=== PATIENT | female | born 2000 | race Caucasian/White ===

== ENCOUNTER 2022-01-12 14:05 | Emergency (ER) | payer BC, SELFPAY ==
[2022-01-12 15:02] VITALS: BP 131/84; PULSE 58; RESP 18; TEMP 36.3; O2SAT 98; BMI 25.3
[2022-01-12 15:43] LABS: Carboxyhemoglobin* 1.9 % (0.0-5.0)
[2022-01-12 15:44] LABS: Basophils Absolute Auto 0.02 K/uL (0.00-0.30); Basophils Percent Auto 0.3 % (0.0-3.0); Eosinophils Absolute Auto 0.03 K/uL (0.00-0.50); Eosinophils Percent Auto 0.4 % (0.0-7.0); Hematocrit 40.5 % (33.0-51.0); Hemoglobin* 13.5 gm/dL (12.0-16.0); Lymphocytes Absolute Auto 2.98 K/uL (0.90-2.90); Lymphocytes Percent Auto 37.3 % (20-44); Mean Corpuscular HGB Conc 33 gm/dL (32-36); Mean Corpuscular Hemoglobin 29 pg (26-34); Mean Corpuscular Volume 88 fL (80-100); Monocytes Percent Auto 6.4 % (0.0-11.0); Neutrophils Absolute Auto 4.44 K/uL (1.7-7.0); Neutrophils Percent Auto 55.6 % (42.0-72.0); Platelet Count* 263 K/uL (140-440); RDW Coefficient of Variation % 11.7 % (11.5-15.5); Slide Review Reflex No; White Blood Count* 7.98 K/uL (4.50-11.00)
--- NOTE | 2022-01-12 16:59 | ED.GENADULT ---
HPI - General Adult General Time Seen by Provider: 16:59 Date Seen: 01/12/22 Chief complaint: Burn/Smoke Inhalation Stated complaint: Possible CO2 Poisoning Time Seen by Provider: 01/12/22 16:55 Source: patient and RN notes reviewed Mode of arrival: ambulatory Limitations: no limitations History of Present Illness HPI narrative: Patient is coming in for evaluation of probable carbon monoxide exposure. She moved into a new apartment and was the only 1 residing there. She attempted to turn the stove on and did not realize that she had turned on. That was 2 days ago. Yesterday she noted was warm. She had thought when she could not get it turned on that it never turned on. It had in fact turned on and then she could not get this switch to go off. Sounds like the switch was just circling. She was hearing some BP in last night but it was soft in intermittent. She did not realize that this was a carbon monoxide detector going off. Overnight she woke up not feeling well, nausea, diarrhea, dizzy and lightheaded. She has been out of the house all day. In the morning someone help her open up all the windows had stands blowing in. Later when the actually checked the carbon monoxide levels they were normal but again the house had already been cleared. The stove has been taking care of. She overall is feeling better and has been out of the house all day. Related Data Home Medications Medication Instructions Recorded Confirmed control pill 01/12/22 Allergies Allergy/AdvReac Type Severity Reaction Status Date / Time No Known Drug Allergies Allergy Verified 01/12/22 15:07 Review of Systems Status of ROS: Reports: 6 or more systems reviewed and unremarkable except as noted in History and below Exam Const: Vital Signs, click to edit/add: Vital Signs - 24 hr 01/12/22 15:02 Temperature 97.4 F L Pulse Rate [Right Pulse Oximeter] 58 L Respiratory Rate 18 Blood Pressure [Ri ght Upper Arm] 131/84 Pulse Oximetry 98 Oxygen Delivery Me thod Room Air Documenting provider has reviewed patient's vital signs: yes Common normals: no apparent distress, average body habitus, oriented x3, no limitations, healthy appearing, alert and well nourished General appearance: cooperative, comfortable and well kempt HENMT: Common normals: normocephalic, head/scalp atraumatic and hearing grossly normal bilaterally Head and scalp: normocephalic and atraumatic Eye: Common normals: PERRL, EOMs intact bilaterally, conjunctivae normal and no scleral icterus Conjunctiva: conjunctiva(e) normal Pupil: PERRL Neck & C-Spine: Common normals: full ROM, no lymphadenopathy, supple, no meningeal signs, no JVD and thyroid normal Thyroid: thyroid normal Resp: Common normals: normal respiratory effort, no retractions, no use of accessory muscles and clear to auscultation bilaterally Auscultation: clear to auscultation bilaterally Cardio: Common normals: no JVD, regular rate, regular rhythm, S1 normal heart sound, S2 normal heart sound, no gallops, no clicks, no murmurs and no rub Rate: regular rate Rhythm: regular rhythm Heart sounds: S1 normal and S2 normal Neuro: Common normals: oriented x3, CN's II-XII intact bilaterally, moves all extremities, no focal motor deficits, no sensory deficits noted and gait normal Sensorium/orientation: alert Meningeal signs: no meningeal signs Speech: speech normal Psych: Appearance: well kempt Course Vital Signs Vital signs: Initial Vital Signs Temperature 97.4 F L 01/12/22 15:02 Temperature Source Temporal Artery Scan 01/12/22 15:02 Pulse Rate 58 L 01/12/22 15:02 Respiratory Rate 18 01/12/22 15:02 Blood Pressure 131/84 01/12/22 15:02 Blood Pressure Mean 99 01/12/22 15:02 Blood Pressure Position Sitting 01/12/22 15:02 Pulse Oximetry 98 01/12/22 15:02 Oxygen Delivery Method 01/12/22 15:02 Vital Signs Temperature 97.4 F L 01/12/22 15:02 Pulse Rate 58 L 01/12/22 15:02 Respiratory Rate 18 01/12/22 15:02 Blood Pressure 131/84 01/12/22 15:02 Pulse Oximetry 98 01/12/22 15:02 Oxygen Delivery Method 01/12/22 15:02 Temperature 97.4 F L 01/12/22 15:02 Pulse Rate 58 L 01/12/22 15:02 Respiratory Rate 18 01/12/22 15:02 Blood Pressure 131/84 01/12/22 15:02 Pulse Oximetry 98 01/12/22 15:02 Oxygen Delivery Method 01/12/22 15:02 Medical Decision Making Lab Data Lab results reviewed: Yes I reviewed the patient's lab results Labs: Lab Results 01/12/22 01/12/22 Range/Units 15:13 15:13 WBC 7.98 (4.50-11.00) K/uL RBC 4.60 (4.00-5.20) m/uL Hgb 13.5 (12.0-16.0) gm/dL Hct 40.5 (33.0-51.0) % MCV 88 (80-100) fL MCH 29 (26-34) pg MCHC 33 (32-36) gm/dL RDW Coeff of Alexus 11.7 (11.5-15.5) % Plt Count 263 (140-440) K/uL Neut % (Auto) 55.6 (42.0-72.0) % Lymph % (Auto) 37.3 (20-44) % Meeker % (Auto) 6.4 (0.0-11.0) % Eos % (Auto) 0.4 (0.0-7.0) % Baso % (Auto) 0.3 (0.0-3.0) % Neut # (Auto) 4.44 (1.7-7.0) K/uL Lymph # (Auto) 2.98 H (0.90-2.90) K/uL Meeker # (Auto) 0.50 (0.00-0.90) K/UL Eos # (Auto) 0.03 (0.00-0.50) K/uL Baso # (Auto) 0.02 (0.00-0.30) K/uL Abs Immat Gran (auto) 0.00 (0.00-0.30) K/uL Carboxyhemoglobin 1.9 (0.0-5.0) % Critical Care Time Critical Care Time Critical Care Time: No Discharge Plan Discharge Clinical Impression: Accidental exposure to carbon monoxide Condition: Stable Instructions: Carbon Monoxide Poisoning (ED) Additional Instructions: Your carboxyhemoglobin level/carbon monoxide level is normal. Since the stove has been 60 in the house has been cleared for elevated carbon monoxide levels, you should be safe to return. Activity Level: No Restrictions and Activity as Tolerated Discharge Diet: Regular Prescriptions: No Action control pill Follow Up/Referrals: Provider,Not a Local [Primary Care Provider] - Stand Alone Forms: MyHealth Info Instructions
== END 2022-01-12 17:50 | disposition home or self-care (01) ==
PROVIDERS: Emergency Provider Family Medicine
DX: T58.11XA Toxic effect of carbon monoxide from utility gas, accidental (unintentional), initial encounter (principal)
CPT/HCPCS: 36415; 82375; 85025; 99283; 99284